=== PATIENT | female | born 1985 | race Two or more races ===

== ENCOUNTER 2019-12-10 00:30 | Inpatient (IN) | payer OTHER ==
[~2019-12-10] VITALS: Ht 160 cm; Wt 73.5 kg
[2019-12-10 01:52] VITALS: BP 145/83
[2019-12-10] MEDS ORDERED: OXYTOCIN 30 UNITS/LACT RINGERS 500 ML IV ONE ×2 (02:18→17:35)
[2019-12-10] MEDS ORDERED: RINGERS SOLUTION,LACTATED 1,000 ML IV ONE (02:18)
[2019-12-10] MEDS ORDERED: METOCLOPRAMIDE HCL 5 MG/ML 2 ML VIAL IVP PRN (02:30)
[2019-12-10] MEDS ORDERED: CITRIC ACID/SODIUM CITRATE 30 ML SOLUTION UDCUP PO PRN (02:30)
[2019-12-10] MEDS ORDERED: LIDOCAINE/PF 1% 30 ML VIAL INJ PRN ×2 (02:30→17:45)
[2019-12-10] MEDS: FentaNYL CITRATE-PF 100 MCG/2 ML VIAL IVP PRN ×2 (03:00→03:03)
[2019-12-10] MEDS: RINGERS SOLUTION,LACTATED 1,000 ML IV SCH ×3 (03:02→14:52)
[2019-12-10 03:06] LABS: BASOPHILS % (AUTO) 0.2 % (0.0-2.0); EOSINOPHILS % (AUTO) 0.1 % (1.0-6.0); HEMATOCRIT 39.3 % (36-46); LYMPHOCYTES # (AUTO) 1.6 K/uL (1.0-4.8); LYMPHOCYTES % (AUTO) 9.7 % (22.0-44.0); MEAN CORPUSCULAR HEMOGLOBIN 28.9 pg (26.0-34.0); MEAN CORPUSCULAR HGB CONC 33.2 G/dL (31.0-37.0); MEAN CORPUSCULAR VOLUME 87 fL (80-100); MONOCYTES # (AUTO) 0.5 K/uL (0.1-1.0); MONOCYTES % (AUTO) 2.8 % (2.0-9.0); NEUTROPHILS # (AUTO) 14.6 K/uL (1.8-7.7); PLATELET COUNT (AUTO)-OB 220 K/uL (150-450); RED BLOOD CELL COUNT(AUTO) 4.51 MIL/uL (4.00-5.20); RED CELL DISTRIBUTION WIDTH 14.7 % (11.5-14.5)
[2019-12-10 03:07] LABS: NEUTROPHILS % (AUTO) 87.2 % (40.0-70.0)
[2019-12-10] MEDS ORDERED: ROPIVACAINE HCL/PF 0.2% 100 ML ED ONE (04:05)
[2019-12-10] MEDS ORDERED: LIDOCAINE/PF 2% 5 ML VIAL ONE (04:05)
[2019-12-10] MEDS ORDERED: ONDANSETRON HCL 4 MG/2 ML VIAL IVP PRN (04:30)
[2019-12-10] MEDS ORDERED: DiphenhydrAMINE HCL 50 MG/ML VIAL IVP PRN (04:30)
[2019-12-10] MEDS ORDERED: NALBUPHINE HCL 10 MG/ML VIAL IVP PRN (04:30)
[2019-12-10] MEDS ORDERED: ROPIVACAINE HCL/PF 0.2% 100 ML ED PRN (04:30)
[2019-12-10] MEDS ORDERED: OXYTOCIN 30 UNITS/LACT RINGERS 500 ML IV PRN (06:26)
[2019-12-10] MEDS ORDERED: BUPIVACAINE HCL/PF 0.25% 10 ML VIAL ONE (12:52)
[2019-12-10] MEDS ORDERED: OxyCODONE HCL/ACETAMINOPHEN 5-325 MG TABLET PO PRN ×2 (17:45)
[2019-12-10] MEDS ORDERED: IBUPROFEN 800 MG TABLET PO PRN (17:45)
[2019-12-10] MEDS ORDERED: LANOLIN 7 GM OINTMENT TP PRN (17:45)
[2019-12-10] MEDS ORDERED: GLYCERIN/WITCH HAZEL LEAF 40 PADS JAR TP PRN (17:45)
[2019-12-10] MEDS ORDERED: BENZOCAINE 20%/MENTHOL 56 GM SPRAY CANISTER TP PRN (17:45)
[2019-12-10] MEDS: MAGNESIUM HYDROXIDE SUSPENSION 30 ML UDCUP PO PRN (21:12)
[2019-12-11 07:39] LABS: BASOPHILS % (AUTO) 0.4 % (0.0-2.0); EOSINOPHILS % (AUTO) 0.6 % (1.0-6.0); HEMATOCRIT 31.8 % (36-46); HEMOGLOBIN 10.4 g/dL (12.0-16.0); LYMPHOCYTES # (AUTO) 2.5 K/uL (1.0-4.8); LYMPHOCYTES % (AUTO) 14.2 % (22.0-44.0); MEAN CORPUSCULAR HEMOGLOBIN 29.4 pg (26.0-34.0); MEAN CORPUSCULAR HGB CONC 32.8 G/dL (31.0-37.0); MEAN CORPUSCULAR VOLUME 90 fL (80-100); MONOCYTES # (AUTO) 1.1 K/uL (0.1-1.0); MONOCYTES % (AUTO) 6.1 % (2.0-9.0); NEUTROPHILS # (AUTO) 14.1 K/uL (1.8-7.7); NEUTROPHILS % (AUTO) 78.7 % (40.0-70.0); PLATELET COUNT (AUTO)-OB 178 K/uL (150-450); RED BLOOD CELL COUNT(AUTO) 3.54 MIL/uL (4.00-5.20); RED CELL DISTRIBUTION WIDTH 15.2 % (11.5-14.5)
[2019-12-11] MEDS: MAGNESIUM HYDROXIDE SUSPENSION 30 ML UDCUP PO PRN (09:19)
[2019-12-11] MEDS ORDERED: SENNA/DOCUSATE SODIUM 8.6-50 MG TABLET PO ONE (12:45)
[2019-12-11] MEDS ORDERED: FERR-89 PO (16:21)
[2019-12-11] MEDS ORDERED: IBUP-2071 PO (16:21)
[2019-12-11] MEDS ORDERED: DOCU-275 PO (16:22)
== END 2019-12-11 18:25 | disposition home or self-care (01) | DRG 807 ==
LOC: 4S 00:30 → OBSVTOIN 00:30
PROVIDERS: ADMIT Obstetrics & Gynecology; ATTEND Obstetrics & Gynecology
PROC: 10E0XZZ Delivery of Products of Conception, External Approach (ICD-10-PCS; principal; 2019-12-10)
PROC: 0KQM0ZZ Repair Perineum Muscle, Open Approach (ICD-10-PCS; 2019-12-10)
PROC: 3E0R3BZ Introduction of Anesthetic Agent into Spinal Canal, Percutaneous Approach (ICD-10-PCS; 2019-12-10)
PROC: 00HU33Z Insertion of Infusion Device into Spinal Canal, Percutaneous Approach (ICD-10-PCS; 2019-12-10)
DX: O77.0 Labor and delivery complicated by meconium in amniotic fluid (principal); Z37.0 Single live birth; O70.1 Second degree perineal laceration during delivery; Z3A.40 40 weeks gestation of pregnancy
CPT/HCPCS: 85461; 86850; 86900; 86901; J2590; J2795; J3010; J3490; J7120